=== PATIENT | male | born 1995 | race Two or more races ===

== ENCOUNTER 2021-07-08 22:01 | Emergency (ER) | payer OTHER ==
[2021-07-08 22:17] VITALS: BP 144/87; PULSE 95; TEMP 98.5; BMI 32.8
[2021-07-09] MEDS ORDERED: IBUPROFEN 600 MG TABLET (FP) PO ONE ×2 (00:36→01:25)
[2021-07-09] MEDS ORDERED: BACITRACIN 15 GM TUBE TOPICAL OINTMENT TP ONE (01:25)
[2021-07-09] MEDS ORDERED: BACITRACIN 15 GM TUBE TOPICAL OINTMENT ONE (01:25)
== END 2021-07-09 01:28 | disposition home or self-care (01) ==
LOC: JER 22:01 → JERFT 22:01
DX: S60.455A Superficial foreign body of left ring finger, initial encounter (principal); W49.04XA Ring or other jewelry causing external constriction, initial encounter
CPT/HCPCS: 73140-TC-LT-FY; 99283-25

== ENCOUNTER 2022-07-12 11:40 | Emergency (ER) | payer OTHER ==
[2022-07-12 11:47] VITALS: BP 138/86; PULSE 82; RESP 18; TEMP 98.4; BMI 36.0
[2022-07-12] MEDS ORDERED: FAMOTIDINE 20 MG TABLET PO ONE (12:32)
[2022-07-12] MEDS ORDERED: MAG HYDROX/AL HYDROX/SIMETH 30 ML UNIT-DOSE CUP PO ONE (12:33)
[2022-07-12] MEDS ORDERED: MAG HYDROX/AL HYDROX/SIMETH 30 ML UNIT-DOSE CUP ONE (12:35)
[2022-07-12] MEDS ORDERED: FAMOTIDINE 20 MG TABLET ONE (12:35)
== END 2022-07-12 13:20 | disposition home or self-care (01) ==
LOC: JERFT 11:40 → JER 11:40 → JERFT 13:20
DX: K21.9 Gastro-esophageal reflux disease without esophagitis (principal)
CPT/HCPCS: 99283-25

== ENCOUNTER 2025-03-24 12:10 | Emergency (ER) | payer OTHER ==
[2025-03-24 12:16] VITALS: BP 139/90; PULSE 99; RESP 19; TEMP 98.6; BMI 37.3
== END 2025-03-24 16:02 | disposition home or self-care (01) ==
LOC: JERFT 12:10
DX: S60.415A Abrasion of left ring finger, initial encounter (principal); W49.04XA Ring or other jewelry causing external constriction, initial encounter
CPT/HCPCS: 99283-25